=== PATIENT | male | born 1955 | race African-American/Black ===

== ENCOUNTER 2019-11-04 08:18 | Inpatient (IN) ==
[2019-11-04] MEDS ORDERED: ASPIRIN PO ONE (08:44)
--- NOTE | 2019-11-04 08:44 | PROVIDER DOCUMENTATION ---
HPI-General Adult - General Chief Complaint: Chest Pain Stated Complaint: CP,SOB,BACK SHOULDER PAIN Time Seen by Provider: 11/04/19 08:30 Source: patient Allergies/Adverse Reactions: Patient Allergies Allergy/AdvReac Type Severity Reaction Status Date / Time No Known Allergies Allergy Verified 11/04/19 09:13 Home Medications: Home Medication List Medication Instructions Recorded Confirmed Last Taken Type NK [No Home Medications] 11/04/19 11/04/19 Unknown History - History of Present Illness -Gen Adult Nature of Presenting Problems: 64yo male presents with CC of chest pain. Onset was 1 week ago. The pain is described as an ache and a sharp pain that radiates to the shoulder. The pain is worse with movement and improves with rest. The patient denies recent travel, surgery, hospitalization, or hx of blood clots. The patient reports a productive cough. The other associated symptoms include some shortness of breath with the chest pain as well as some nausea. The patient denies hx of MO, but does have f mhx of MO and CVA. The patient is a current daily smoker. Chest pain currently resolved. Pt is non toxic appearing. Location of Pain/Injury: reports: chest Pain Radiation: reports: shoulder(s) (left) Quality of Pain: reports: aching, stabbing Onset/Duration: reports: 1 week ago Timing: reports: gone now Context/Activities at Onset: denies: out of country travel Modifying Factors: improves with: rest. worse with: movement Associated Symptoms: reports: cough, nausea, shortness of breath Similar Symptoms Previously?: No Review of Systems - Adult - REVIEW OF SYSTEMS - ADULT Constitutional: reports: no symptoms reported. denies: fever Eyes: reports: no symptoms reported. denies: eye pain Ears, Nose, Mouth & Throat: reports: sinus problem Cardiovascular: reports: chest pain Respiratory: reports: cough, shortness of breath Gastrointestinal: reports: no symptoms reported, nausea. denies: abdominal pain Genitourinary: reports: no symptoms reported. denies: flank pain Musculoskeletal: reports: joint pain (shoulder) Integumentary: reports: no symptoms reported Neurological: reports: no symptoms reported. denies: headache/migraines Psychiatric: reports: no symptoms reported Endocrine: reports: no symptoms reported Hematologic/Lymphatic: reports: no symptoms reported, other (no bleeding) Allergic/Immunologic: reports: no symptoms reported, other (no swelling) Past History - Adult - PAST MEDICAL HISTORY-ADULT Review of Records: reports: Old Records Reviewed Major Childhood Illnesses: reports: denies history Cardiovascular: reports: denies history Respiratory: reports: denies history Gastrointestinal: reports: ulcer Obstetrical/Gynecological: reports: denies history Genitourinary: reports: denies history Musculoskeletal: reports: denies history Neurological: reports: denies history Endocrine/Immune: reports: denies history Other Conditions: reports: denies history - PRIOR SURGERIES/PROCEDURES Surgical/Procedure History: reports: other (ulcer). denies: cardiac stent - IMMUNIZATION STATUS Childhood Immunizations: See Nurse Assessment Flu Vaccine: See Nurse Assessment - FAMILY HISTORY Family History: diabetes, CVA/TIA, other (CAD) - SOCIAL HISTORY Smoking: cigarettes (daily 5 cigs daily) Provider spent 3-5 mins advising pt. on dangers of tobacco.: Discussed manners to quit use, and f/u contacts for add'l counseling. Substance Use: alcohol Alcohol Use Frequency: every day Number of drinks per typical drinking period:: 2 drinks Physical Exam-General - PHYSICAL EXAM-ADULT Initial Vital Signs Reviewed: Yes - CONSTITUTIONAL General Appearance: appears well, alert, no apparent distress - EYES Eyes: negative: conjuctival exudate, photophobia, subconjunctival hemorrhage - HEAD, EARS, NOSE, MOUTH & THROAT HENMT: normocephalic/atraumatic, moist mucous membranes, pharynx normal. negative: pharyngeal erythema, tonsillar exudate - RESPIRATORY Respiratory: lungs clear, no respiratory distress, decreased breath sounds. negative: crackles, rales, stridor, wheezing - CARDIOVASCULAR Cardiovascular: regular rate, rhythm, no edema - GASTROINTESTINAL (ABDOMEN) Abdominal Exam: non tender, soft. negative: guarding, rebound - MUSCULOSKELETAL Extremity: non-tender, normal inspection - SKIN Integumentary: normal color, warm/dry - NEUROLOGIC Neurologic: grossly normal - PSYCHIATRIC Psych/Mental Status: normal mood/affect, normal thought content, normal thought process Progress - PLAN OF CARE/RESULTS Progress/Plan/Lab Results: Vital Signs - 8 hr 11/04/19 08:20 Temperature 97.9 F Pulse Rate 105 H Respiratory Rate 18 Blood Pressure 115/77 O2 Sat by Pulse Oximetry 97 Orders Category Date Time Status EKG [EKG] Stat Ther 11/04/19 08:30 Ordered Result Diagrams: 11/04/19 09:06 11/04/19 09:06 - REASSESSMENT Reassessment #1 Time Reassessed: 09:48 Status: other (CXR showing new apical mass. Given possible new malignancy, tachycardia, and chest pain will plan CT of the chest for PE and further evalua tion of the apical mass.) Reassessment #2 Status: other (Discussed case with hospitalist who has accepted the patient. Discussed results with family and patient who are agreeable with admission.) - EKG 1 Time of EKG reading by physician:: 08:29 EKG Read and Signed by:: Kandis Stubbs (Entered by Dr. Martinez) EKG Interpretation (*Must complete 3 of following elements*): Normal Rate: 97 Rhythm: sinus [place]: normal QRS: normal DC Interval: normal ST Wave: normal - XRAY 1 XRAY Study: Chest Impression: See EMR Report ( EXAM: CHEST-2 VIEWS 11/04/2019 HISTORY: Chest pain TECHNIQUE: PA and lateral chest COMMENT: There is a medial apical opacity on the left which was not present on 12/09/2017. This is masslike in appearance. The heart size and pulmonary vascularity are within normal limits. There are surgical clips at the hiatus. IMPRESSION: Left upper lobe apical mass. Further evaluation is recommended. Electronically signed by Johnie Bhatia 11/04/2019 9:28 AM 11/04/19927 Interpreting Physician: Johnie Amaral MD Dictated Date/Time: 11/04/19925 cc: Martín Martinez MD; None,PCP) Departure - Departure Date of Disposition Decision: 11/04/19 Time of Disposition Decision: 13:51 DIAGNOSIS: Cancer, Lung mass Chest pain Qualifiers: Chest pain type: unspecified Qualified Code(s): R07.9 - Chest pain, unspecified Disposition: ADMITTED INPATIENT 09 Certified Medical Emergency: Emergent Condition: Serious Referrals and Follow-Ups: None,PCP [Primary Care Provider] - - Critical Care Note This patient required my direct & personal management of CC.: No Attestation - Physician/ MARGE Attestation Patient care was provided by Advanced Practice Provider:: No The physician spent face to face time with patient:: Yes Advanced Practice Provider documentation review:: Supervising physician onsite and consulted in the evaluation and care of this patient. The physician did have a face to face encounter with the patient. - HEART Score HEART Score: History: Moderately Suspicious HEART Score: ECG: Normal HEART Score: Age: > or = 65 Years HEART Score: Risk Factors for Atherosclerotic Disease: 1 or 2 Risk Factors HEART Score: Troponin: < or = Normal Limit Total HEART Score:: 4
[2019-11-04 09:20] LABS: BASO# 0.03 X1000 (0.0-0.2); BASO% 0.2 % (0.0-0.8); EOS# 0.16 X1000 (0.0-0.7); EOS% 1.3 % (0.0-10.0); HEMATOCRIT 35.7 % (42.0-52.0); HEMOGLOBIN 11.6 g/dL (14.0-18.0); IMM GRAN# 0.03 X1000 (0.0-0.04); IMM GRAN% 0.2 % (0.0-0.5); LYMPH# 1.47 X1000 (1.2-3.4); LYMPH% 12.2 % (20.5-51.1); MCH 27.8 PG (27-31); MCHC 32.5 g/dL (33-37); MCV 85.6 FL (81-99); MONO% 9.1 % (1.7-9.3); MPV 10.3 FL (7.4-10.4); NEUT# 9.28 X1000 (1.4-6.5); PLT 539 X1000 (130-400); RBC 4.17 XMIL (4.7-6.1); RDW 13.5 % (11.5-14.5); WBC 12.07 X1000 (4.8-10.8)
[2019-11-04 09:26] LABS: INR 1.05; PROTIME 13.8 Seconds (11.0-16.0)
--- NOTE | 2019-11-04 09:26 | EKG Report ---
Test Performed on : 11/04/2019 08:23:52 AM Test Reason : CP Blood Pressure : / mmHG Vent. Rate : 097 BPM Atrial Rate : 097 BPM P-R Int : 130 ms QRS Dur : 074 ms QT Int : 356 ms P-R-T Axes : 074 068 069 degrees QTc Int : 452 ms Normal sinus rhythm. Septal infarct , age undetermined Abnormal ECG No previous ECGs available Unconfirmed Result
[2019-11-04 09:27] LABS: PTT 35.3 Seconds (22.3-41.8)
--- NOTE | 2019-11-04 09:30 | Diag Imaging Result Doc PS360 ---
EXAM: CHEST-2 VIEWS 11/04/2019 HISTORY: Chest pain TECHNIQUE: PA and lateral chest COMMENT: There is a medial apical opacity on the left which was not present on 12/09/2017. This is masslike in appearance. The heart size and pulmonary vascularity are within normal limits. There are surgical clips at the hiatus. IMPRESSION: Left upper lobe apical mass. Further evaluation is recommended. Electronically signed by Johnie Bhatia 11/04/2019 9:28 AM
[2019-11-04 10:05] LABS: AGAP 14; ALB/GLOB RATIO 0.9; ALBUMIN 3.2 g/dL (3.5-5.0); ALKALINE PHOSPHATASE 98 U/L (32-122); BUN 9 mg/dL (8-22); CALCIUM 9.4 mg/dL (8.8-10.2); CHLORIDE 98 mmol/L (98-107); CK PROFILE 49 U/L (24-204); COSMO 274; CREATININE 0.8 mg/dL (0.7-1.2); ESTIMATED GFR > 60; GLUCOSE 98 mg/dL (70-104); GOT 13 U/L (10-34); GPT < 5 U/L (10-44); POTASSIUM 4.5 mmol/L (3.5-5.1); SODIUM 138 mmol/L (136-145); TCO2 26 mmol/L (25-35); TOTAL BILIRUBIN 0.28 mg/dL (0.20-1.00); TOTAL PROTEIN 6.9 g/dL (6.3-8.3)
[2019-11-04 11:44] LABS: URINE SOURCE CLEAN CATCH
[2019-11-04 12:04] LABS: BILIRUBIN URINE NEGATIVE (NEGATIVE); BLOOD URINE NEGATIVE (NEGATIVE); COLOR YELLOW; GLUCOSE URINE NEGATIVE (NEGATIVE); KETONE URINE NEGATIVE (NEGATIVE); LEUKOCYTES URINE NEGATIVE (NEGATIVE); NITRITE URINE NEGATIVE (NEGATIVE); PH URINE 6.5; PROTEIN URINE 30 mg/dL (NEGATIVE); TURBIDITY URINE CLEAR (CLEAR); UROBILINOGEN URINE 3 mg/dL (NORMAL)
--- NOTE | 2019-11-04 12:15 | Diag Imaging Result Doc PS360 ---
EXAM: CT ANGIOGRAM PULMONARY ARTERIES 11/04/2019 HISTORY: Chest Pain and Possible Cancer TECHNIQUE: This exam was performed using automated exposure control, adjustment of mA or kV according to patient size, and/or use of iterative reconstruction technique. COMMENT: There are no thoracic previous studies available for comparison, however comparison is made with the previous abdominal study of 05/20/2016 where possible. There is a mass in the left superior sulcus medially which is associated with erosive destruction of the body and left pedicle of T2 as well as the adjacent head of the second left rib. Possibility of invasion of the left T2-3 foramen cannot be excluded. There is also erosion of T3 anterolaterally on the left. There is lytic disease in the medial portion of the third rib. The mass also invades the superior mediastinum partially encasing the left subclavian artery proximally, abutting the arch of the aorta and superior portion of the left hilum. There is some nonspecific adenopathy in the subcarina and calcified nodes are present in the subcarina and right hilum. There is no demonstrable fat plane between the mass in the mediastinum and the esophagus and trachea. There are bilateral pleural effusions. No evidence of pulmonary emboli is present. There is a calcified granulomatous lesion present posteriorly in the right upper lobe. There is a small nodule of indeterminate nature anteriorly in the right upper lobe on image 55. There is a similar nodule in the right middle lobe on image 67. Compared to the previous abdominal study the pleural fluid collections were not previously present, but otherwise the visualized portion of the abdomen is stable. The cystic and calcific lesions in the spleen have not changed. IMPRESSION: Locally invasive mass in the left superior sulcus. Possible metastatic lesions in the right upper and middle lobes. Bilateral pleural effusions. Electronically signed by Johnie Bhatia 11/04/2019 12:13 PM
[2019-11-04 12:28] LABS: UR EPITHELIAL CELLS <10 /HPF (<10); URINE BACTERIA NEGATIVE /HPF; URINE CASTS NONE SEEN; URINE CRYSTALS CA OXALATE PRESENT; URINE RBC <10 /HPF (<10); URINE SMALL ROUND CELLS NONE SEEN; URINE WBC <10 /HPF (<10); URINE YEAST NONE SEEN
[2019-11-04 12:33] LABS: SP GRAVITY URINE 1.015
[2019-11-04] MEDS ORDERED: PHENERGAN IV PRN (13:14)
[2019-11-04] MEDS ORDERED: NORCO-7.5 PO PRN (13:14)
[2019-11-04] MEDS ORDERED: NS 500 ML IV ONE (13:14)
[2019-11-04] MEDS ORDERED: SODIUM CHLORIDE 0.9% INJ PRN (13:14)
[2019-11-04] MEDS ORDERED: ZOFRAN IV PRN (13:14)
[2019-11-04] MEDS ORDERED: DUONEB (A & A) INH PRN (13:14)
[2019-11-04] MEDS ORDERED: TYLENOL PO PRN (13:14)
[2019-11-04] MEDS ORDERED: ATIVAN IV PRN (14:19)
[2019-11-04] MEDS ORDERED: M.V.I.-12 10 ML, FOLIC ACID 1 MG, MAGNESIUM SULFATE 1 GM, THIAMINE 100 MG in NS 1,000 ML IV SCH (14:30)
[2019-11-04] MEDS: SOLU-MEDROL IV SCH (14:30)
--- NOTE | 2019-11-04 14:35 | HISTORY AND PHYSICAL ---
PRIMARY CARE PROVIDER: No one. CHIEF COMPLAINT: Chest pain. HISTORY OF PRESENT ILLNESS: Mr. Bharathi Lim is a 64-year-old male with a medical history of peptic ulcers disease with what he describes as a partial gastrectomy back in the late due to the peptic ulcer disease. Otherwise, he is an every day smoker. He started at the age of 15. He smokes less than a half pack per day. He also is a daily drinker. He drinks 5 beers per day with the last being yesterday. He states that for the last 2 weeks he has had chest pain on the left. It radiated into the left shoulder, under the axilla, and into the back. He has had some dark brown phlegm. He has been experiencing nocturnal chills. He has had an unknown amount of weight loss in an unknown amount of time and he also has occasional dizziness. For the past week he has also started to experience shortness of breath with activity. Otherwise, there have been no other complaints and he comes in with these current complaints. Workup revealed that on a chest x-ray it showed a left upper lobe apical mass, so a CT was performed, a CTA of the pulmonary system and it also shows a locally invasive mass in the left superior sulcus. It is invasive to the point that there is erosive destruction of the body and left pedicle of T2 as well as the adjacent head of the 2nd left rib. Possibility of invasion of the left T2 through 3 foramen could not be excluded. There is also erosion of T3 anterolaterally on the left. There is lytic disease in the medial portion of the third rib and the mass also invades the superior mediastinum partially, encasing the left subclavian artery proximally. There are also possible metastatic lesions in the right upper and middle lobes. He also has bilateral pleural effusions. So we are going to have him admitted and workup these lesions. PAST MEDICAL HISTORY: Peptic ulcer disease. SURGICAL HISTORY: Partial gastrectomy in the late secondary to peptic ulcer disease or this is what he is reporting. SOCIAL HISTORY: Less than a half pack per day since the age of 15. No chewing tobacco. He drinks 5 beers per day with last being yesterday. Denies any illicit drug use. He is single. No kids. Lives alone. He is retired and draws social security. FAMILY HISTORY: Mother had bone cancer, diabetes, and stroke. Father had dementia. He has 3 siblings with no medical history. ALLERGIES: No known drug allergies. HOME MEDICATIONS: None. REVIEW OF SYSTEMS: Fourteen point review of systems are complete and all were negative except for those mentioned above in HPI. PHYSICAL EXAMINATION: VITAL SIGNS: Temperature 97.9 degrees, heart rate 79, respiratory rate 19, blood pressure 123/73, O2 saturation 100% on room air. GENERAL: Mr. Bharathi Lim is a 64-year-old male. He is in no acute distress. He is able to answer questions appropriately. HEENT: Atraumatic, normocephalic. Pupils equal, round, reactive to light. Extraocular movements intact. Mucous membranes are dry. NECK: Trachea midline. CARDIOVASCULAR: S1, S2. Regular rate and rhythm. No rubs, gallops, murmurs. No lower extremity edema. There are +2 dorsalis and radial pulses. Negative for JVD or carotid bruits. PULMONARY: Clear to auscultate bilaterally, but he has decreased breath sounds anteriorly and posteriorly in the left upper lobe region. He is tolerating room air. There is no accessory muscle use or work of breathing noted. GI: Soft, nontender, nondistended. Positive bowel sounds x4. EXTREMITIES: Moves all extremities equally. Full range of motion. NEUROLOGIC: A and O x3. Follows commands. Sensory is intact. SKIN: Warm, dry, intact. LABORATORY DATA: White blood cells 12,000, hemoglobin 11, hematocrit 35, platelet count 539,000. INR is 1.05, PTT 35.3. Sodium 138, potassium 4.5, BUN 9, creatinine 0.8, glucose 98, calcium 9.4, bilirubin 0.28, AST 13, ALT less than 5. CK 49. Troponin less than 0.01. ProBNP 436. Albumin 3.2. Lactate 0.9 and 0.7. Urinalysis, 30 protein, 3 urobilinogen dipstick, negative bacteria. IMAGING: EKG: Normal sinus rhythm, rate is 97. QTc is 452. Chest x-ray: Left upper lobe apical mass. Pulmonary arteriogram: Mass in the left superior sulcus medially which is associated with erosive destruction of the body of the left pedicle of T2 as well as the adjacent head of the 2nd left rib. Possibility of invasion in the left T2 through 3 foramen could not be excluded. There is also erosion of T3 anterolaterally on the left. There is lytic disease in the medial portion of the third rib. The mass also invades the superior mediastinum partially, encasing the left subclavian artery proximally, abutting the arch of the aorta and superior portion of the left hilum. There are possible metastatic lesions in the right upper and middle lobes as well. ASSESSMENT AND PLAN: 1. Left upper lobe lung mass with possible metastases in the right upper middle lobe. The left upper lobe mass is invasive involving ribs, vertebrae, and encasing the left subclavian artery. Dr. Mcgowan is on-call with Oncology. We will consult her. We already have an order in for a CT scan and biopsy. Will do p.r.n. nebulizers as needed. We will add IV steroids. 2. Leukocytosis, possible infection, but there are no signs of pneumonia. The urine is clear. Blood culture has been ordered. Lactate is normal. So no antibiotics at this time, but we may need to start on this if he shows signs of infection. Could always be a possible postobstructive pneumonia. 3. History of peptic ulcer disease. We will do Prilosec. 4. Tobacco abuse. Cessation discussed. We will do nicotine patch. 5. Alcohol abuse. He drinks 5 beers daily. The last 1 was yesterday. We will do p.r.n. Ativan. We will do a banana bag. If he shows any signs of agitation, we can also add a lithium taper if needed. He denies ever having any signs of alcohol withdrawal. 6. Deep venous thrombosis prophylaxis. SCDs. Dictated by TABATHA Jones for Maik Brito MD cc: TABATHA Jones patient coming in with chest pain likely related to newly noted large, lung mass. appears to be growing into ribs, vertabrae, and around the left subclavian. will set up for biopsy, treat pain, and get him plugged in with oncology. once biopsy is obtained and pain is controlled he can likely be discharged to follow up with oncology for further treatment as long as he doesn't have any complications with the biopsy. on exam, patient thin and bording on cachectic, slightly decreased L upper lobe breath sounds but overall lungs pretty clear. MTDD
[2019-11-04] MEDS: M.V.I.-12 10 ML, FOLIC ACID 1 MG, MAGNESIUM SULFATE 1 GM, THIAMINE 100 MG in NS 1,000 ML IV SCH (17:42)
--- NOTE | 2019-11-04 22:06 | ECHO REPORT ---
ORDER DATE: 11/04/2019 INTERPRETING PHYSICIAN: Dr. Jean CLINICAL INDICATIONS: This is a 64-year-old male with lung cancer, chest pain, and shortness of breath. M-MODE MEASUREMENTS: Left ventricle end diastole: 4.5 cm. Left ventricle end systole: 3.1 cm. Posterior wall: 1.0 cm. Interventricular septum: 1.0 cm. Left atrium: 3.9 cm. Aortic diameter: 3.7 cm. SUMMARY OF 2-DIMENSIONAL IMAGIN. Left ventricular chamber appears to be within normal range. The global left ventricular systolic function appears to be decreased. By computer tracing the ejection fraction appears to be in the order of 40%. The study is very difficult and I am afraid this modality cannot provide accurate measurements. The impairment appears to be global. 2. Aortic valve has three cusps. They open normally. Color flow mapping unremarkable. 3. Pulmonic valve looks normal. Color flow mapping unremarkable. 4. The tricuspid valve shows a mild degree of regurgitation. 5. The pulmonary pressure is estimated at 39 to 44 mmHg. 6. There is no pericardial effusion, mass, and no thrombus. IN SUMMARY: The study shows 1. Moderately decreased ejection fraction estimated at 40%. Again, the study is difficult. 2. The mitral valve is unremarkable. 3. The pulse wave Doppler of mitral inflow shows relatively normal E/A ratio and tissue Doppler of septal and lateral mitral annulus averages 8 cm. 4. There is no diastolic dysfunction. 5. There is no aortic stenosis or regurgitation. 6. There is mild degree of tricuspid regurgitation with a pulmonary pressure of 39 to 44 mmHg. 7. The right atrial pressure is normal. 8. There is no pericardial effusion. Clinical correlation is recommended. cc: MD Yuki Sanchez CRNP
[2019-11-05] MEDS: SOLU-MEDROL IV SCH ×2 (01:24→12:41)
[2019-11-05] MEDS: PRILOSEC PO SCH (06:01)
[2019-11-05 07:34] LABS: BASO# 0.01 X1000 (0.0-0.2); BASO% 0.1 % (0.0-0.8); HEMATOCRIT 32.6 % (42.0-52.0); HEMOGLOBIN 10.6 g/dL (14.0-18.0); LYMPH# 0.92 X1000 (1.2-3.4); LYMPH% 12.9 % (20.5-51.1); MCH 27.5 PG (27-31); MCHC 32.5 g/dL (33-37); MCV 84.5 FL (81-99); MONO% 2.8 % (1.7-9.3); MPV 10.5 FL (7.4-10.4); NEUT# 6.02 X1000 (1.4-6.5); NEUT% 84.2 % (42.2-75.2); PLT 536 X1000 (130-400); RBC 3.86 XMIL (4.7-6.1); RDW 13.2 % (11.5-14.5); WBC 7.15 X1000 (4.8-10.8)
[2019-11-05 07:48] LABS: INR 1.08; PROTIME 14.1 Seconds (11.0-16.0)
[2019-11-05 07:49] LABS: PTT 42.4 Seconds (22.3-41.8)
--- NOTE | 2019-11-05 07:55 | EKG Report ---
Test Performed on : 11/05/2019 07:45:48 AM Test Reason : chest pain Blood Pressure : / mmHG Vent. Rate : 075 BPM Atrial Rate : 075 BPM P-R Int : 136 ms QRS Dur : 076 ms QT Int : 416 ms P-R-T Axes : 068 065 060 degrees QTc Int : 464 ms Normal sinus rhythm. with sinus arrhythmia. Septal infarct (cited on or before 04-NOV-2019) Abnormal ECG When compared with ECG of 04-NOV-2019 08:23, (Unconfirmed) No significant change was found Confirmed by Hayder ARNOLD, Kwame ([id number]) on 11/05/2019 4:55:19 PM
[2019-11-05 08:05] LABS: AGAP 13; ALB/GLOB RATIO 0.9; ALKALINE PHOSPHATASE 84 U/L (32-122); BUN 11 mg/dL (8-22); CHLORIDE 99 mmol/L (98-107); CK TOTAL 31 U/L (24-204); COSMO 272; CREATININE 0.6 mg/dL (0.7-1.2); ESTIMATED GFR > 60; GLUCOSE 137 mg/dL (70-104); GOT 8 U/L (10-34); GPT < 5 U/L (10-44); MAGNESIUM 2.6 mg/dL (1.5-2.7); POTASSIUM 4.6 mmol/L (3.5-5.1); SODIUM 135 mmol/L (136-145); TCO2 23 mmol/L (25-35); TOTAL BILIRUBIN < 0.15 mg/dL (0.20-1.00); TOTAL PROTEIN 6.4 g/dL (6.3-8.3)
--- NOTE | 2019-11-05 12:37 | Diag Imaging Result Doc PS360 ---
EXAM: CHEST-2 VIEWS 11/05/2019 HISTORY: POST LEFT LUNG BIOPSY TECHNIQUE: Inspiratory expiratory sitting upright chest COMMENT: There is no evidence of pneumothorax or pleural fluid collection. The appearance of the chest has not changed significantly since the previous study of 11/04/2019. IMPRESSION: Stable chest. Electronically signed by Johnie Bhatia 11/05/2019 12:35 PM
[2019-11-05] MEDS: PRINIVIL PO SCH (12:39)
[2019-11-05] MEDS: TOPROL XL PO SCH (12:40)
--- NOTE | 2019-11-05 12:56 | Diag Imaging Result Doc PS360 ---
EXAM: CT GUIDED BIOPSY LUNG 11/05/2019 HISTORY: left upper lobe mass; right upper/middle lesions TECHNIQUE: CT-guided percutaneous biopsy of the left upper lobe COMMENT: The risks and benefits of the procedure including the possibility of bleeding, infection, reaction to lidocaine and pneumothorax was discussed with patient and he agreed to the procedure. Following sterile preparation of the skin posteriorly, and infiltration of the skin and deeper soft tissues with 1% lidocaine, a coaxial 20-gauge Temno core biopsy needle was employed to obtain four cores from the left apical lesion. There are no immediate complications. The patient tolerated the procedure well. IMPRESSION: Successful left upper lobe CT-guided percutaneous biopsy. Electronically signed by Johnie Bhatia 11/05/2019 12:54 PM
--- NOTE | 2019-11-05 14:38 | Diag Imaging Result Document ---
PROCEDURE NAME: MYOCARDIAL PERFU SCAN, REST - 11/05/2019 STUDY: Resting myocardial perfusion scan. INDICATIONS: Cardiomyopathy. PROCEDURES PERFORMED: Rest myocardial perfusion imaging. (resting dose 25.8 mCi of technetium- 99m sestamibi). FINDINGS: 1. No evidence of abnormal extracardiac uptake. 2. Post rest perfusion imaging demonstrates normal homogenous uptake of radiotracer throughout the myocardial segments. 3. Normal ejection fraction of 66%. 4. End-diastolic volume 97, and end systolic volume of 33. 5. Normal wall motion is noted. cc: MD Andi Richards MD
--- NOTE | 2019-11-05 15:55 | PROGRESS NOTE ---
DATE: 11/05/2019 INTERVAL HISTORY: Patient went for lung mass biopsy and stress test this morning. Tolerated those well so far. After stress test discussed, I discussed patient's possible heart failure diagnosis with Cardiology. His EF on stress test was actually completely normal at 66%. They reviewed his echocardiogram and felt that the that the mildly decreased EF noted on echocardiogram was in error, as study was quite limited and his mass, the large lung mass, may have been effecting things as well. They felt that he did not in fact have decreased EF or heart failure. Given that, they did not think he needs any further cardiac workup or treatment. The patient's previously noted chest pain is much improved. No new complaints. REVIEW OF SYSTEMS: Twelve-point review of systems negative except as per interval history. LABS: WBC 7.1, hemoglobin 10.6, hematocrit 32.6, platelets 536,000. INR 1. Sodium 135, potassium 4.6, BUN 11, creatinine 0.6, glucose 137. PROCEDURES: Stress test showing normal EF 66% and was otherwise normal. CT-guided lung biopsies successfully performed with no immediate complications. Chest x-ray this morning, stable. VITAL SIGNS: T-max 98.5 degrees, pulse 84, respirations 16, blood pressure 113/82, and O2 saturation 98% on room air. PHYSICAL EXAMINATION: General: On physical exam, in no acute distress. Chronically ill- appearing. Vital Signs: As above. HEENT: Normocephalic, atraumatic. Some temporal muscle wasting noted. Moist mucous membranes. Cardiovascular: Regular rate and rhythm. No murmurs noted. Pulmonary: Slightly decreased breath sounds in the posterior upper lobe stable, otherwise clear to auscultation. Abdomen: Soft, nontender, nondistended. Bowel sounds positive. Extremities: Peripheral pulses intact. No clubbing, cyanosis, or edema. Neurologic: Cranial nerves grossly intact. No focal deficits identified. Psychiatric: Normal mood and affect. Awake, alert, oriented x3. Skin: No new rashes or lesions noted. ASSESSMENT AND PLAN: 1. Left upper lobe lung mass with likely metastasis and involvement of the ribs and vertebra and subclavian artery on that side. Dr. Mcgowan with oncology has been consulted. Biopsy performed this morning. If he has no complication, then may be able to be discharged in the morning, if Oncology has no further studies that need to be performed inpatient. 2. Leukocytosis, likely reactive. No clear sign of infection identified. CTA showing only likely cancerous masses with no clear sign of infection. Urinalysis unremarkable. The patient feeling fairly well, no need for antibiotics at this time, but we will monitor. 3. History of alcohol abuse. Patient drinks 3 to 5 beers daily. No signs of withdrawal noted, but we will continue to monitor. 4. Tobacco abuse. Cessation discussed. The patient offered nicotine patch. 5. Gastroesophageal reflux disease, history of peptic ulcer disease. Continue Prilosec. 6. Reduced ejection fraction on echocardiogram, likely in error as discussed above. Normal ejection fraction on stress test, which cardiology favors as the more accurate. No need for further treatment or workup. Congestive heart failure ruled out. 7. Disposition. The patient now with status post biopsy and stress test. We will see if Oncology wants any other tests performed inpatient, but as long as he does not have a pneumothorax on chest x-ray in the morning, he can likely be discharged home.
--- NOTE | 2019-11-05 16:13 | Diag Imaging Result Doc PS360 ---
EXAM: CHEST-2 VIEWS 11/05/2019 HISTORY: inspiration/expiration TECHNIQUE: Inspiratory expiratory upright chest COMMENT: There is no evidence of pneumothorax or pleural fluid collection. Otherwise the appearance the chest has not changed appreciably since the previous series at 1211. IMPRESSION: Stable chest. Electronically signed by Johnie Bhatia 11/05/2019 4:11 PM
[2019-11-05] MEDS ORDERED: NS 500 ML ONE (16:36)
--- NOTE | 2019-11-05 17:06 | HEMO/ONC CONSULTATION ---
DATE: 11/05/2019 CONSULTATION REQUESTED BY/REASON FOR CONSULTATION: The patient seen in initial consultation at the request of Dr. Brito regarding a lung mass. HISTORY OF PRESENT ILLNESS: Mr. Lim was admitted to [facility] with left-sided chest pain on 11/04/2018. His CT angiogram in the emergency room showed a locally invasive mass in the left superior sulcus, possibly right upper lobe and right middle lobe metastases, erosive destruction of the left pedicle of T2 in the 2nd rib and T3 anterolaterally with a lytic metastasis in the 3rd rib. The tumor was invading the mediastinum and encasing the left subclavian artery. He underwent CT-guided biopsy of the mass today. He reports improving pain control since his admission. He is being evaluated by Cardiology as well as we speak. PAST MEDICAL HISTORY: Notable for peptic ulcer disease. PAST SURGICAL HISTORY: Partial gastrectomy late for peptic ulcer disease. ALLERGIES: No known drug allergies. MEDICATIONS: Home medications are none. SOCIAL HISTORY: Patient smoked 1 pack per day since the age of 15. He drinks 5 to 6 beers per day currently. He lives alone, but his sister is at the bedside during consultation. FAMILY MEDICAL HISTORY: Dad had dementia. Mom had bone cancer, diabetes, and stroke. REVIEW OF SYSTEMS: Pertinent positives and negatives as per HPI. All other review of systems are negative. PHYSICAL EXAMINATION: Vital Signs: Temperature 98 degrees, pulse 84, respiratory rate 18, blood pressure 130/71, and O2 saturation 98% on room air. General: This is a chronically ill-appearing man in no acute distress. His nurse and his sister are at the bedside during consultation. HEENT: Eyes, sclerae anicteric. Conjunctivae are pale. Cardiovascular: Regular rate and rhythm. Normal S1, S2. No murmurs, rubs, or gallops. Pulmonary: Decreased breath sounds on the left apex, otherwise no wheezes, rales or rhonchi. Gastrointestinal: Abdomen is soft, nontender, nondistended with normoactive bowel sounds. Extremities: No clubbing, cyanosis. Trace bilateral ankle edema. Neurologic: Alert and oriented x3. Gait not assessed, as patient is in the hospital bed. LABORATORY DATA: Sodium 135, potassium 4.6, creatinine 0.6, albumin 3. White count 7.15, hemoglobin 10.6, platelet count 536,000. RADIOLOGY: CT angiogram on 11/04/2019 as per HPI. ASSESSMENT AND PLAN: 1. Left lung mass: Highly suspicious for malignancy. We discussed the differential diagnosis. I discussed with the patient that this is most likely a lung malignancy. He will need an outpatient PET scan for further evaluation. Biopsy is pending, and I will see him back to follow up on those results as an outpatient. We will check a CEA and LDH at this time. I discussed the palliative intent of treatment with patients with stage IV metastatic cancer. Overall goals of care were discussed with the patient and sister at length today. 2. Tobacco abuse: Encouraged smoking cessation. Reassess at return visit. 3. Alcohol abuse: He is being monitored closely for alcohol withdrawal. Continue to monitor and reassess at return visit. 4. Suspicion of superior vena cava syndrome: I have discussed the role of radiation therapy and the treatment of locally advanced disease. I will review his case with Dr. Cruz as well. Thank you for this consultation and the opportunity to participate in the care of this unfortunate patient. I will follow along with you and make further recommendations as more information is available. If he is discharged over the holidays, then I will see him back in the clinic at the end of the week or early next week. cc: MD Maik Schilling MD MTDD
[2019-11-05] MEDS: M.V.I.-12 10 ML, FOLIC ACID 1 MG, MAGNESIUM SULFATE 1 GM, THIAMINE 100 MG in NS 1,000 ML IV SCH (17:15)
[2019-11-06] MEDS: SOLU-MEDROL IV SCH ×2 (00:31→13:49)
[2019-11-06] MEDS: PRILOSEC PO SCH (06:52)
[2019-11-06 07:11] LABS: HEMOGLOBIN 10.2 g/dL (14.0-18.0); IMM GRAN# 0.03 X1000 (0.0-0.04); IMM GRAN% 0.2 % (0.0-0.5); LYMPH% 6.1 % (20.5-51.1); MCH 27.5 PG (27-31); MCHC 31.9 g/dL (33-37); MCV 86.3 FL (81-99); MONO# 0.38 X1000 (0.11-0.59); MONO% 2.9 % (1.7-9.3); MPV 10.4 FL (7.4-10.4); NEUT# 11.88 X1000 (1.4-6.5); NEUT% 90.8 % (42.2-75.2); PLT 531 X1000 (130-400); RBC 3.71 XMIL (4.7-6.1); RDW 13.8 % (11.5-14.5); WBC 13.09 X1000 (4.8-10.8)
[2019-11-06 07:25] LABS: AGAP 11; ALB/GLOB RATIO 0.8; ALBUMIN 2.8 g/dL (3.5-5.0); ALKALINE PHOSPHATASE 75 U/L (32-122); BUN 14 mg/dL (8-22); CALCIUM 8.6 mg/dL (8.8-10.2); CHLORIDE 107 mmol/L (98-107); COSMO 285; CREATININE 0.8 mg/dL (0.7-1.2); ESTIMATED GFR > 60; GLUCOSE 130 mg/dL (70-104); GOT 11 U/L (10-34); GPT 5 U/L (10-44); MAGNESIUM 2.7 mg/dL (1.5-2.7); POTASSIUM 4.4 mmol/L (3.5-5.1); SODIUM 142 mmol/L (136-145); TCO2 24 mmol/L (25-35); TOTAL BILIRUBIN < 0.15 mg/dL (0.20-1.00); TOTAL PROTEIN 6.5 g/dL (6.3-8.3)
[2019-11-06 07:37] LABS: LYMPHS 11 % (21-51); MONO 4 % (1-9); SEGS 85 % (42-75)
[2019-11-06] MEDS: TOPROL XL PO SCH (08:58)
[2019-11-06] MEDS: PRINIVIL PO SCH (08:58)
[2019-11-06] MEDS ORDERED: ASPIRIN PO SCH (09:00)
--- NOTE | 2019-11-06 10:33 | Diag Imaging Result Doc PS360 ---
EXAM: CHEST-PORTABLE HISTORY: lung cancer. TECHNIQUE: Chest single view COMPARISON: 11/05/2019 FINDINGS: Left upper lung mass similar to the prior exam. The lungs are otherwise well expanded. No pneumothoraces. No cardiomegaly. No pleural effusions identified. IMPRESSION: Stable chest Electronically signed by Clyde Chahal 11/06/2019 10:31 AM
--- NOTE | 2019-11-06 12:14 | PROGRESS NOTE ---
DATE: 11/06/2019 SUBJECTIVE: Patient is resting in bed. Not in any obvious distress. The patient did have a CT- guided biopsy of his lungs yesterday, 11/05/2019. OBJECTIVE: Vital Signs: Vital signs are as follows: Temperature 97.4 degrees, pulse is 78, respiratory rate is 20, blood pressure is 114/70, oxygen saturation is 98%. HEENT: Atraumatic, normocephalic. He is anicteric. Extraocular movements intact. No oral lesions noted. Neck: No lymphadenopathy or thyromegaly. Cardiovascular system: S1, S2. Respiratory system: Has evidence of good air entry bilaterally. Abdomen: Soft, nontender. No masses felt. Extremities: No evidence of edema. Central nervous system: No obvious focal deficit. LABS: Labs are as follows: WBC is 13.09, hematocrit is 32.0, with a platelet count of 531. Sodium is 142, potassium is 4.4, chloride is 107, bicarbonate 24. BUN is 5, creatinine 0.8. X-RAYS: Chest x-ray shows evidence of left upper lobe lung mass similar to prior exam. ASSESSMENT AND PLAN: 1. Left upper lobe lung mass. The patient already had CT-guided biopsy done. The patient can be discharged from a medical standpoint if the Oncology team are in agreement. 2. Tobacco use history. Nicotine patch. 3. Gastroesophageal reflux disease. Maintain patient on proton pump inhibitor. 4. History of alcoholism. No evidence of alcohol withdrawal at this time. 5. Anemia. Check iron studies, B 12 and folate levels, and also stool for occult blood. 6. Leukocytosis. The patient does not show any signs of any infective process at this time. Follow up on patient's white count. 7. Deep vein thrombosis prophylaxis. Sequential compression devices. cc: Nicolás Landry MD
[2019-11-06] MEDS: M.V.I.-12 10 ML, FOLIC ACID 1 MG, MAGNESIUM SULFATE 1 GM, THIAMINE 100 MG in NS 1,000 ML IV SCH (15:47)
[2019-11-07] MEDS: SOLU-MEDROL IV SCH ×2 (02:29→15:17)
[2019-11-07] MEDS: PRILOSEC PO SCH (06:08)
[2019-11-07 07:49] LABS: BASO# 0.02 X1000 (0.0-0.2); BASO% 0.1 % (0.0-0.8); EOS# 0.02 X1000 (0.0-0.7); EOS% 0.1 % (0.0-10.0); HEMATOCRIT 31.2 % (42.0-52.0); HEMOGLOBIN 10.1 g/dL (14.0-18.0); IMM GRAN# 0.04 X1000 (0.0-0.04); IMM GRAN% 0.3 % (0.0-0.5); LYMPH# 2.92 X1000 (1.2-3.4); LYMPH% 20.7 % (20.5-51.1); MCH 27.9 PG (27-31); MCHC 32.4 g/dL (33-37); MCV 86.2 FL (81-99); MONO# 1.25 X1000 (0.11-0.59); MONO% 8.9 % (1.7-9.3); MPV 10.2 FL (7.4-10.4); NEUT# 9.87 X1000 (1.4-6.5); NEUT% 69.9 % (42.2-75.2); PLT 572 X1000 (130-400); RBC 3.62 XMIL (4.7-6.1); RDW 13.6 % (11.5-14.5); WBC 14.12 X1000 (4.8-10.8)
[2019-11-07 08:40] LABS: AGAP 12; ALB/GLOB RATIO 0.9; ALBUMIN 2.9 g/dL (3.5-5.0); ALKALINE PHOSPHATASE 75 U/L (32-122); BUN 13 mg/dL (8-22); CALCIUM 8.8 mg/dL (8.8-10.2); CHLORIDE 104 mmol/L (98-107); COSMO 278; CREATININE 0.6 mg/dL (0.7-1.2); ESTIMATED GFR > 60; GLUCOSE 74 mg/dL (70-104); GOT 13 U/L (10-34); GPT 9 U/L (10-44); MAGNESIUM 2.5 mg/dL (1.5-2.7); POTASSIUM 4.2 mmol/L (3.5-5.1); SODIUM 140 mmol/L (136-145); TCO2 24 mmol/L (25-35); TOTAL BILIRUBIN < 0.15 mg/dL (0.20-1.00); TOTAL PROTEIN 6.3 g/dL (6.3-8.3)
[2019-11-07] MEDS: TOPROL XL PO SCH (09:31)
[2019-11-07] MEDS: PRINIVIL PO SCH (09:31)
[2019-11-07 10:57] VITALS: BP 123/72
--- NOTE | 2019-11-07 14:17 | DISCHARGE SUMMARY ---
ADMISSION DATE: 11/04/2019 DISCHARGE DATE: PRINCIPAL DIAGNOSIS: Left lung mass. SECONDARY DIAGNOSES: 1. Tobacco use history. 2. History of alcoholism. 3. Anemia. DISCHARGE MEDICATIONS: [place] 7.5 q.6 p.r.n. as directed. PROCEDURES DONE DURING THIS HOSPITAL STAY: Chest x-ray on 11/04/2019. CTA of the chest on 11/04/2019. X-ray of the chest on 11/05/2019. Lung biopsy, CT guided, on 11/05/2019. Cardiac stress test on 11/05/2019. A 2D echo of the heart on 11/04/2019. Chest x-ray on 11/05/2019. Chest x-ray on 11/06/2019. CONSULTATIONS DONE DURING THIS HOSPITAL STAY: Dr. Yamilex Mcgowan, oncology. HOSPITAL COURSE: Mr. Bharathi Lim is a 64-year-old male who was admitted to the hospital because of chest pain. Acute OH was ruled out with negative cardiac enzymes. The patient subsequently had a cardiac stress test done which was essentially a normal study. A 2D echo of the heart showed a moderately depressed ejection fraction estimated to be about 40%. The patient was noted to have, on a CT of the chest, a locally invasive mass in the left superior sulcus. He subsequently had a biopsy of the lesion done on 11/05/2019. The pathology report is currently pending as of the time of this discharge summary. The patient was seen by the oncology team during the course of this hospital stay. PHYSICAL EXAMINATION: During my evaluation today, temperature 98.4 degrees, pulse 76, respiratory rate 19, blood pressure 120/72, oxygen saturation 99%. HEENT: Atraumatic and normocephalic. Cardiovascular System: S1, S2. Respiratory System: Has evidence of good air entry bilaterally. Abdomen: Soft, nontender. No masses felt. Extremities: No evidence of edema. Central Nervous System: No obvious focal deficits noted. LABORATORY DATA: WBC 14.13, hematocrit is 31.2, with a platelet count of 572,000. Sodium is 140, potassium is 4.2, chloride is 104, bicarb is 24, BUN is 20, creatinine 0.6. PLAN: The patient can be discharged home today, to follow up with Dr. Yamilex Mcgowan, oncology, for the lung biopsy report. The patient will also need to follow up with Dr. Butt in the outpatient with regards to congestive heart failure. cc: Nicolás Landry MD
[2019-11-07] MEDS: M.V.I.-12 10 ML, FOLIC ACID 1 MG, MAGNESIUM SULFATE 1 GM, THIAMINE 100 MG in NS 1,000 ML IV SCH (16:29)
== END 2019-11-07 16:47 | disposition home or self-care (01) | DRG 180 ==
LOC: ED 08:18 → EDIPHOLD 13:34 → SUATTDRO 13:34 → 3N 15:13
PROVIDERS: ATTEND Internal Medicine